=== PATIENT | male | born 1985 | race Hispanic/Latino ===

== ENCOUNTER 2025-02-01 03:19 | Emergency (ER) | payer SELFPAY ==
[~2025-02-01] VITALS: Ht 182.9 cm; Wt 141.5 kg
[2025-02-01 03:46] LABS: IMMATURE GRANULOCYTE ABSOLUTE 0.03 K/uL (0-1); NUCLEATED RED BLOOD CELLS 0.0 % (0.0-0.19); PLATELET COUNT (AUTO) 178 K/uL (130-400); RED BLOOD CELL COUNT(AUTO) 5.48 MIL/uL (4.50-6.20); RED CELL DISTRIBUTION WIDTH 12.8 % (11.0-15.5); WHITE BLOOD COUNT (AUTO) 8.7 K/uL (4.8-10.8)
--- NOTE | 2025-02-01 03:46 | ERN ---
ED Note History of Present Illness Stated Complaint: C/O WEAKNESS,DIZZINESS, HEADACHE Chief Complaint: Dizzy/Light Headed Time Seen by MD: 03:27 Dictation: This is a 39-year-old male who presented to the emergency room with complaints of generalized body weakness and dizziness for the past few days. He also reported some headaches frontal as well as occipital headaches. He denied any nausea vomitings or diarrhea. No fever chills or rigors. Reports polyuria polydipsia No chest pain pressure presyncope or syncope. No trauma to the head. No loss of consciousness. No seizure activity No other family members are sick at home. Patient was diagnosed with hyperglycemia and was followed by a primary care physician however due to his work situation he did not keep up the appointments. He stated that he was never told he was diabetic. Temperature 97.3 pulse 68 respirations 20 blood pressure 148/97 with a pulse oximetry of 96% on room air Allergies: Coded Allergies: No Known Allergies (Unverified Allergy, Unknown, 02/01/25) Past Medical History Past Medical History: Diabetes-Type II, Hypertension Surgical History: None Social History: Drugs (Admits to smoking marijuana) RN Note Reviewed/Agreed w/PFSH: Yes Review of System Dictation Constitutional: Negative for fever,chills, and weight loss positive for generalized body weakness and dizziness Eyes: Negative for injury, pain,redness, and discharge ENT: Negative for injury,pain or swelling Cardiovascular: Negative for chest pain, palpitations, and edema Respiratory: Negative for shortness of breath, cough, and wheezing, Abdomen/GI: Negative for abdominal pain, nausea, vomiting, diarrhea, and constipation Back: Negative for injury and pain : Negative for injury, bleeding and discharge MS/Extremity: Negative for injury and deformity Skin: Negative for rash, and discoloration Neuro: Positive for headache, denied any motor weakness, numbness, tingling, and seizure Psych: Negative for suicide ideation, homicidal ideation, and hallucinations Initial Vital Sign VS Vital Signs Date Time Temp Pulse Resp B/P (MAP) Pulse Ox O2 Delivery O2 Flow Rate FiO2 02/01/25 03:22 97.3 68 20 148/97 96 Room Air 02/01/25 03:40 0 21 Physical Exam Dictation General: awake, alert, NAD morbidly obese Head/Face: Normocephalic, atraumatic Eyes: PERRL, EOMI, vision at baseline ENT: oral cavity clear, TMs clear, no signs of infection Neck: Trachea midline, supple, no nuchal rigidity Cardiovascular: RRR, normal S1/S2, No MRGs, no JVD Respiratory: CTAB, no respiratory distress, No rales or wheezes Abdomen: Soft, non-tender, non-distended, normal bowel sounds, no guarding or rebound. Skin: Warm, dry, normal turgor, no rash MS/Extremity: Pulses equal, no cyanosis, neurovascular intact, FROM Neuro: COAx4, GCS 15, strength 5/5, CN 2-12 intact, normal cerebellar exam, normal gait, Psych: Normal behavior, mood, and affect normal Extremities-trace edema without any palpable cords, Homans sign is negative Results (Laboratory/Radiology) Laboratory/Radiology Laboratory Tests Test 02/01/25 03:36 02/01/25 03:49 02/01/25 05:42 02/01/25 06:37 White Blood Count 8.7 K/uL (4.8-10.8) Red Blood Count 5.48 MIL/uL (4.50-6.20) Hemoglobin 16.8 g/dL (14.0-18.0) Hematocrit 48.4 % (42-54) Mean Corpuscular Volume 88.3 fL (79-99) Mean Corpuscular Hemoglobin 30.7 pg (27.0-33.0) Mean Corpuscular Hemoglobin Concent 34.7 g/dL (32.0-36.0) Red Cell Distribution Width 12.8 % (11.0-15.5) Platelet Count 178 K/uL (130-400) Mean Platelet Volume 10.4 fL (7.5-10.5) Immature Granulocyte % (Auto) 0.3 % (0-1) Neutrophils (%) (Auto) 56.9 % (40.0-77.0) Lymphocytes (%) (Auto) 33.4 % (21.0-51.0) Monocytes (%) (Auto) 6.3 % (3.0-13.0) Eosinophils (%) (Auto) 2.2 % (0.0-8.0) Basophils (%) (Auto) 0.9 % (0.0-5.0) Neutrophils # (Auto) 4.9 K/uL (1.8-7.7) Lymphocytes # (Auto) 2.9 K/uL (1.0-4.8) Monocytes # (Auto) 0.6 K/uL (0.1-1.0) Eosinophils # (Auto) 0.19 K/uL (0.00-0.70) Basophils # (Auto) 0.08 K/uL (0.00-0.20) Absolute Immature Granulocyte (auto 0.03 K/uL (0-1) Nucleated Red Blood Cells 0.0 % (0.0-0.19) Urine Color LIGHT-YELLOW (YELLOW) Urine Appearance CLEAR (CLEAR) Urine pH 6.0 (5.0-8.0) Urine Specific [place] 1.027 (1.001-1.031) Urine Protein NEGATIVE mg/dL (NEGATIVE) Urine Glucose (UA) >=1000 mg/dL (NEGATIVE) H Urine Ketones NEGATIVE mg/dL (NEGATIVE) Urine Occult Blood NEGATIVE (NEGATIVE) Urine Nitrate NEGATIVE (NEGATIVE) Urine Bilirubin NEGATIVE mg/dL (NEGATIVE) Urine Urobilinogen 0.2 mg/dL (0.2-1.0) Urine Leukocyte Esterase NEGATIVE Jamal/uL Urine RBC None /HPF (0-1) Urine WBC None /HPF (0-1) Urine Bacteria None /HPF (None Seen) Sodium Level 136 mmol/L (136-145) Potassium Level 4.1 mmol/L (3.5-5.1) Chloride Level 100 mmol/L (101-111) L Carbon Dioxide Level 26 mmol/L (21-32) Blood Urea Nitrogen 14 mg/dL (7-18) Creatinine 0.9 mg/dL (0.5-1.3) Glomerular Filtration Rate Calc 111 mL/min (>90) Random Glucose 337 mg/dL (70-105) H Total Calcium 8.2 mg/dL (8.5-10.1) L Total Creatine Kinase 99 U/L (21-232) Troponin I High Sensitivity 5.4 ng/L (4-75) Urine Opiates Screen NEGATIVE (NEGATIVE) Urine Barbiturates Screen NEGATIVE (NEGATIVE) Urine Phencyclidine Screen NEGATIVE (NEGATIVE) Urine Amphetamines Screen NEGATIVE (NEGATIVE) Urine Benzodiazepines Screen POSITIVE (NEGATIVE) H Urine Cocaine Screen NEGATIVE (NEGATIVE) Urine Marijuana (THC) Screen POSITIVE (NEGATIVE) H Influenza Type A Antigen Negative For Type A Influenza Type B Antigen Negative For Type B SARS-CoV-2 Antigen (Rapid) PRESUMPTIVE NEGATIVE Whole Blood Glucose 311 MG/DL (70-110) H 311 MG/DL (70-110) H Labs Reviewed?: Yes EKG Comment: Twelve lead EKG done on 02/01/2025 at 3:47 a.m. showed a heart rate of 67, MD interval 178, QRS duration 111, QT/QTC 398/420 Impression normal sinus rhythm with a nonspecific ST-T changes and repolarization findings. Nonspecific ST-T changes were noted. EKG rhythm strip shows normal sinus rhythm with nonspecific ST-T changes. Early repolarization noted. Interpreted by ER MD Dr. Aguilar ED Course ED Course Orders Procedure Category Date Status Time Cardiac Panel LAB 02/01/25 Complete 03:27 Cbc With Differential LAB 02/01/25 Complete 03:27 Basic Metabolic Panel LAB 02/01/25 Complete 03:27 Urinalysis Profile LAB 02/01/25 Complete 03:27 12 Lead Ekg Tracing- EKG 02/01/25 Resulted Technical 03:27 Drug Screen Urine LAB 02/01/25 Complete 03:32 Influenza Type A & B, LAB 02/01/25 Complete Rapid 03:32 Covid19 (Sars Antigen LAB 02/01/25 Complete Rapid) 03:32 0.9%Nacl 1000ml (Ns PHA 02/01/25 Complete 1000ml) 04:00 0.9%Nacl 1000ml (Ns PHA 02/01/25 Complete 1000ml) 05:00 Random Accucheck At CPOE 02/01/25 Transmitted Bedside 05:02 Insulin Regular, PHA 02/01/25 Complete Human 3ml (Humulin R 06:00 Insulin Regular, PHA 02/01/25 Complete Human 3ml (Humulin R 07:00 Current Medications Medications (Trade) Dose Ordered Sig/Phillip Route PRN Reason Start Time Stop Time Status Last Admin Dose Admin Insulin Human Regular (humuLIN R 100 UNIT/ML 3ML) 3 unit ONCE ONCE IV 02/01/25 07:00 02/01/25 07:01 DC 02/01/25 07:00 Insulin Human Regular (humuLIN R 100 UNIT/ML 3ML) 3 unit ONCE ONCE SQ 02/01/25 06:00 02/01/25 06:01 DC 02/01/25 06:01 Sodium Chloride 1,000 ml @ 0 mls/hr ONCE ONCE IV 02/01/25 04:00 02/01/25 04:01 DC 02/01/25 03:52 Sodium Chloride 1,000 ml @ 0 mls/hr Q0M ONCE IV 02/01/25 05:00 02/01/25 05:01 DC 02/01/25 05:02 Vital Signs Date Time Temp Pulse Resp B/P (MAP) Pulse Ox O2 Delivery O2 Flow Rate FiO2 02/01/25 03:40 99.0 72 18 154/96 96 Room Air* 0 21 02/01/25 03:22 97.3 68 20 148/97 96 Room Air We will perform diagnostic labs, advanced imaging and administer medications according to the patient's complaint. Once the results are available, will review and personally interpreted the labs to rule out any acute life- threatening emergency the trach require immediate intervention and treatment. I will then re-evaluate the patient after treatment and diagnostic exams have return to determine whether the patient requires any further testing, can safely be discharged home or need further admission to hospital for additional treatment and evaluation. Medical Decision Making MDM Differential diagnosis: Cervical spondylosis, cervical radiculopathy, tension headaches, dehydration, viral syndrome, diabetes mellitus This is a 39-year-old male who presented to the emergency room with complaints of generalized body weakness and dizziness for the past few days. He also reported some headaches frontal as well as occipital headaches. He denied any nausea vomitings or diarrhea. No fever chills or rigors. No chest pain pressure presyncope or syncope. No trauma to the head. No loss of consciousness. No seizure activity No other family members are sick at home. Patient was diagnosed with hyperglycemia and was followed by a primary care physician however due to his work situation he did not keep up the appointments. He stated that he was never told he was diabetic. Temperature 97.3 pulse 68 respirations 20 blood pressure 148/97 with a pulse oximetry of 96% on room air 4:08 a.m.-CBC is with a normal limits. BNP 7 showed a BUN and creatinine of 14 and 0.9 with a glucose of 337. Troponins are negative. UDS positive for THC and benzos. 4:19 a.m. swabs for COVID and influenza negative 5:46 a.m. repeat Accu-Chek after 2 L of IV fluids-311. 3 units of regular insulin IV x1 and reassess response in the next 45 minutes. I updated the patient and his on all the available lab results and the diabetes mellitus and need for establishing with a primary care physician to have his sugars monitored closely and treatment initiated. They both verbalized full understanding I explained to them that treatment initiation can not be done in the ER as patient can not be monitored as by primary care physician. 7:00 p.m. after additional 3 units of insulin repeat Accu-Chek is 264. Patient will be discharged to home to follow up with the primary care physician for optimizing glycemic control Rationale: Tests considered and ordered secondary to shared decision making include: Labs, swabs for viral syndromes Previous outside records reviewed: Old ER visits. Risk of complication and/or morbidity or mortality of patient management: None Medications-Per medication reconciliation Need for hospitalization: Patient does not meet criteria for hospitalization. Need for emergency major/minor surgery: No There are some social concerns with this patient-patient does not have any health insurance. Prescription drug management Prescriptions will include symptomatic care Patient's prior external medical records from other ER visits were reviewed by me as indicated. Prior testing and results from previous visits were reviewed. Prior tests were taken into account with medical decision making and resource utilization, independent historian/historians were used to obtain complete m edical history. I independently interpreted the test that were performed, results were reviewed by me and considered findings on radiology if ordered. Medical management and examination interpretation discussions were had by me with other qualified healthcare professionals as indicated for the patient's care. Problem List Problem List: (1) Diabetes mellitus with hyperglycemia (2) Dehydration (3) Cannabis use disorder (4) Morbid obesity DX & DISP Disposition: Discharge Departure Impression: Primary Impression: Diabetes mellitus with hyperglycemia Additional Impressions: Dehydration, Cannabis use disorder, Morbid obesity Condition: Stable Additional Instructions: Patient and the caregiver have been informed of all the diagnostic tests and the imaging conducted during the today's visit to the emergency room and has verbalized understanding of the results I have personally reviewed and interpreted all diagnostic exams performed here in the ER today as well as the vital signs documented by the nursing staff. The patient is now being discharged to home and should follow up with the primary care physician or the specialist as directed by the ER staff. Instructed patient to make an appointment with the primary care physician felecia to get diabetes mellitus evaluated. List of primary care physicians offered. Referrals: SELF,REFERRAL (PCP) DAVIDE AGUILAR MD Feb 01, 2025 03:46
[2025-02-01] MEDS: 0.9%NACL 1000ML 1,000 ML IV ONE ×2 (03:52→05:02)
[2025-02-01 03:54] LABS: CREATININE 0.9 mg/dL (0.5-1.3); GLOMERULAR FILTR. RATE CALC 111.0 mL/min (>90); GLUCOSE,RANDOM 337.0 mg/dL (70-105); SODIUM SERUM 136.0 mmol/L (136-145); UREA NITROGEN, BLOOD 14.0 mg/dL (7-18)
[2025-02-01 03:56] LABS: AMPHET/METH SCREEN,URINE NEGATIVE (NEGATIVE); BARBITURATE SCREEN, URINE NEGATIVE (NEGATIVE); CANNABINOID SCREEN,URINE POSITIVE (NEGATIVE); COCAINE SCREEN,URINE NEGATIVE (NEGATIVE)
[2025-02-01 04:01] LABS: CREATINE KINASE, TOTAL 99.0 U/L (21-232)
[2025-02-01 04:11] LABS: COVID19 (SARS ANTIGEN RAPID) PRESUMPTIVE NEGATIVE (NEGATIVE); INFLUENZA TYPE A Negative For Type A (NEGATIVE); INFLUENZA TYPE B Negative For Type B (NEGATIVE)
--- NOTE | 2025-02-01 04:32 | EKG ---
[facility] Test Date: 2025-02-01 Test Time: 03:47:13 Pat Name: SALOME SPAIN Department: [facility] Patient ID: [facility] [id number] Room: Gender: M [employer] Technician: [id number] : 1985 Requested By: DAVIDE AGUILAR Order Number: [id number] Reading MD: Desmond Zapien Measurements Intervals [place] Rate: 67 P: 14 MA: 178 QRS: 88 QRSD: 111 T: 37 QT: 398 QTc: 420 Interpretive Statements Sinus rhythm ST elev, probable normal early repol pattern No previous ECG available for comparison Electronically Signed On 02-01-2025 07:08:29 CDT by Desmond Zapien Please click the below link to view image of tracing.
[2025-02-01 04:37] LABS: APPEARANCE,URINE CLEAR (CLEAR); GLUCOSE, URINE (UA) >=1000 mg/dL (NEGATIVE); LEUKOCYTE ESTERASE ,URINE NEGATIVE Leu/uL (NEGATIVE); NITRATE,URINE NEGATIVE (NEGATIVE); OCCULT BLOOD,URINE NEGATIVE (NEGATIVE)
[2025-02-01 04:38] LABS: ADD UA MICROSCOPIC YES
[2025-02-01 07:41] VITALS: BP 144/98; PULSE 70; RESP 16; TEMP 98; O2SAT 95
--- NOTE | 2025-02-01 07:54 | NUR ---
DC PATIENT WAS DC'D BY DR AGUILAR, I DC'D PATIENTS IV WITH CATH STILL INTACT AND APPLIED 2X2 GAUZE WITH COBAN, I EXPLAINED TO PATIENT TO FOLLOW UP WITH PCP, PROVIDED INFO BASED ON DIAGNOSIS, AND ANSWERED ANY FOLLOW UP QUESTIONS, PATIENT AMBULATED OUT OF ED, NO COMPLICATIONS
== END 2025-02-01 07:53 | disposition home or self-care (01) ==
LOC: EDH 03:19
DX: E11.65 Type 2 diabetes mellitus with hyperglycemia (principal); E86.0 Dehydration; F12.10 Cannabis abuse, uncomplicated; E66.01 Morbid (severe) obesity due to excess calories; R51.9 Headache, unspecified; I10 Essential (primary) hypertension; Z68.41 Body mass index [BMI] 40.0-44.9, adult; Z20.822 Contact with and (suspected) exposure to COVID-19
CPT/HCPCS: 99284; 96374; 96361; 87426; 82550; 84484; 80048; 80305; 85025; 87804 ×2; 82948 ×3; 81001; 36415; 96372; 93005; J1815; J7030 ×2